=== PATIENT | female | born 1955 | race Caucasian/White ===

== ENCOUNTER 2017-01-16 12:38 | Day surgery (SDC) | payer OTHER ==
[~2017-01-16] VITALS: Ht 160 cm; Wt 113.1 kg
[2017-01-16] VITALS (9 sets, daily range): BP systolic 112–179; BP diastolic 53–81; PULSE 88–100; RESP 15–25; Ht 160 cm; Wt 113.1 kg
[~2017-01-16 12:38] MED LIST: LACTATED RINGER'S 1,000 ML IV* SCH
[2017-01-16] MEDS ORDERED: AZIL40TA PO (13:01)
--- NOTE | 2017-01-16 16:41 | HPN ---
Date/Time of Note Date/Time of Note DATE: 01/16/17 TIME: 16:41 Interval H&P Admission Note Pt. seen H&P reviewed: No system changes ANTONY COPELAND January 16, 2017 16:41
[2017-01-16] MEDS ORDERED: MIDAZOLAM 1 MG/ML 2 ML INJ ONE ×2 (16:48→17:04)
[2017-01-16] MEDS ORDERED: FENTAnyl 50 MCG/ML VIAL ONE ×2 (16:48→17:03)
[2017-01-16] MEDS ORDERED: BUPIVACAINE 0.5% (SDV) 30 ML INJ ONE (17:09)
[2017-01-16] MEDS ORDERED: LIDOCAINE 1% (STERILE-PAK) 30 ML INJ ONE (17:09)
[2017-01-16] MEDS ORDERED: METOCLOPRAMIDE 10 MG INJ ONE (17:48)
[2017-01-16] MEDS ORDERED: ONDANSETRON 4 MG INJ ONE (17:48)
[2017-01-16] MEDS ORDERED: DEXAMETHASONE 4 MG/ML 1 ML INJ ONE (17:48)
[2017-01-16] MEDS ORDERED: CEFAZOLIN 1 GM INJ ONE (17:59)
[2017-01-16] MEDS ORDERED: PROPOFOL 40 ML ONE (17:59)
[2017-01-16] MEDS ORDERED: LIDOCAINE 2% (SDV) 5 ML INJ ONE (17:59)
[2017-01-16] MEDS ORDERED: MEPERIDINE 25 MG INJ IV PRN (18:00)
[2017-01-16] MEDS ORDERED: ONDANSETRON 4 MG INJ IV PRN (18:00)
[2017-01-16] MEDS ORDERED: FENTAnyl 50 MCG/ML VIAL IV PRN (18:00)
[2017-01-16] MEDS ORDERED: HYDROmorphONE (0.2 MG/ML) 10ML SYG IV PRN ×2 (18:00)
[2017-01-16] MEDS ORDERED: DIPHENHYDRAMINE 50 MG INJ IV PRN (18:00)
[2017-01-16] MEDS ORDERED: HYDROCODONE/APAP (5/325) TAB ONE (18:15)
--- NOTE | 2017-01-16 18:35 | OPR ---
DATE OF OPERATION: 01/16/2017 PREOPERATIVE DIAGNOSES: 1. Right carpal tunnel syndrome. 2. Right wrist de Quervain's tenosynovitis. 3. Right wrist cyst. POSTOPERATIVE DIAGNOSES: 1. Right carpal tunnel syndrome. 2. Right wrist de Quervain's tenosynovitis. 3. Right wrist cyst. PROCEDURE PERFORMED: 1. Right carpal tunnel release, open. 2. Right wrist first dorsal compartment release for de Quervain's tenosynovitis. 3. Excision of right wrist cyst. SURGEON: Francisco Javier Anders MD ANESTHESIA: General plus local. OPERATIVE FINDINGS: 1. Compression of median nerve at the carpal tunnel. 2. Stenosing tenosynovitis at the first dorsal compartment. 3. Cyst arising from the proximal aspect of the first dorsal compartment on the dorsal radial aspect of the wrist. INDICATION FOR PROCEDURE: A 61-year-old female with longstanding right wrist and hand pain. She failed conservative management for carpal tunnel syndrome as well as de Quervain's tenosynovitis. Options were discussed and the patient elected to proceed with surgical intervention, understanding the risks and benefits. We discussed all 3 procedures including right carpal tunnel release, right wrist first dorsal compartment release and excision of right wrist cyst. The patient elected to proceed understanding the risks and benefits of these procedures. DESCRIPTION OF PROCEDURE: The patient was seen in the preoperative area and all further questions were answered. Again, she gave informed consent for a right carpal tunnel release, right wrist first dorsal compartment release and excision of right wrist cyst. I marked the incisions for carpal tunnel release and the first dorsal compartment release combined with the excision of cyst and patient gave verbal consent for these procedures, understanding the risks and benefits. She had signed informed consent in my office for these specific procedures and we received authorization from her worker's compensation agency in order to proceed with these procedures. Of note, the consent that was transcribed by the hospital from my clinic consent failed to mention carpal tunnel release. However, patient and I both intended on performing a carpal tunnel released as evidenced by all documentation including a consent signed by the patient and myself in clinic. All documents and orders produced and consented to by the patient prior to surgery, including the hospital orders specifically stating how the consent should read, included right carpal tunnel release. In addition, I discussed the surgery with the patient at the bedside in the pre-operative suite and marked out the surgical incisions, including carpal tunnel, and discussed all surgeries with the patient, including carpal tunnel, and the patient gave informed consent at the bedside, witnessed by the , indicating that she wanted to proceed with right carpal tunnel release as well as first dorsal compartment release and excision of cyst. Thus, all procedures were performed as indicated and desired by the patient with both signed and informed consent on record. The patient was taken to the operative suite and placed in supine position. She was placed under general anesthesia and 2 grams of Ancef given. Tourniquet placed in the right upper extremity and right upper extremity was prepped with ChloraPrep stick and draped in the usual sterile fashion. Esmarch bandage was used to exsanguinate the extremity and tourniquet inflated to 250 mmHg. Attention was first turned to the carpal tunnel release and a 2 cm incision at the base of the palm was utilized with sharp dissection carried down through skin and subcutaneous tissue. The palmar aponeurosis was identified and was incised along its ulnar border. Retractors were deepened and the transverse carpal ligament was identified and was incised along its ulnar border approximately 3 mm radial to the hook of the hamate. A curved hemostat was used to spread distally and the transverse carpal ligament was divided under direct visualization. Attention was turned proximally and scissor dissection divided the antebrachial fascia off the transverse carpal ligament. The transverse carpal ligament was divided along its ulnar border under direct visualization. Wound was copiously irrigated and skin closed with 4-0 nylon. Attention was turned to the radial aspect of the wrist and a 3 cm incision centered over the first dorsal compartment was utilized with sharp dissection carried down through skin and subcutaneous tissue. The superficial branch of the radial nerve was protected and was retracted and the first dorsal compartment was visualized. The compartment was divided along its dorsal border in order to prevent the tendons from subluxating. There was stenosis of the tendons within the sheath and the sheath was divided distally and proximally. Proximally, I was able to visualize a cyst arising from the first dorsal compartment and this cyst was excised. Wound was copiously irrigated and skin closed with 4-0 nylon. Xeroform was placed over the wounds followed by sterile gauze, Webril and a short arm splint with the wrist in extension. Tourniquet deflated after 25 minutes and patient was awakened from anesthesia. She was taken to the postoperative suite in stable condition and tolerated the procedure well without complication. SPECIMENS: None. ESTIMATED BLOOD LOSS: 5 mL. COUNTS: Sponge, instrument and needle counts correct. TOURNIQUET TIME: 25 minutes. CONDITION ON DISCHARGE: Stable. Dictated By: FRANCISCO JAVIER DYE/ENDER Conf#: [id number] DID#: [id number]
[2017-01-16] MEDS ORDERED: HYDROCODONE/APAP (5/325) TAB PO PRN (19:00)
== END 2017-01-24 18:18 | disposition home or self-care (01) ==
LOC: SDS 12:38
PROVIDERS: ATTEND Orthopaedic Surgery Hand Surgery
DX: G56.01 Carpal tunnel syndrome, right upper limb (principal); M65.4 Radial styloid tenosynovitis [de Quervain]; E66.01 Morbid (severe) obesity due to excess calories; Z68.41 Body mass index [BMI] 40.0-44.9, adult
CPT/HCPCS: 25000; 64721; J0690; J1100; J2250; J2405; J2765; J3010